=== PATIENT | female | born 1970 | race African-American/Black ===

== ENCOUNTER 2018-07-12 05:08 | Day surgery (SDC) | payer OTHER ==
[2018-07-12] MEDS ORDERED: CEFAZOLIN 2 GM/50 ML (PMX) 50 ML IVPB (06:56)
[2018-07-12] MEDS ORDERED: HETASTARCH 6% NACL 500 ML BAG (07:00)
[2018-07-12] MEDS ORDERED: SEVOFLURANE 15 MIN (07:00)
[2018-07-12] MEDS ORDERED: SUCCINYLCHOLINE CHLORIDE 100 MG/5 ML SYG IV (07:00)
[2018-07-12] MEDS ORDERED: EPHEDrine SULFATE 50 MG/5 ML SYG (07:00)
[2018-07-12] MEDS ORDERED: MIDAZOLAM 1 MG/ML 2 ML INJ (07:01)
[2018-07-12] MEDS ORDERED: ROCURONIUM 50 MG INJ (07:01)
[2018-07-12] MEDS ORDERED: PROPOFOL 20 ML (07:01)
[2018-07-12] MEDS ORDERED: ONDANSETRON 4 MG INJ (07:27)
[2018-07-12] MEDS ORDERED: DEXAMETHASONE 4 MG/ML 5 ML INJ (07:28)
[2018-07-12] MEDS ORDERED: METOCLOPRAMIDE 10 MG INJ (07:28)
[2018-07-12] MEDS ORDERED: PHENYLephrine (100 MCG/ML) 5ML SYG (07:40)
[2018-07-12] MEDS: BUPIVACAINE 0.25% (MPF) 30 ML INJ (08:10)
[2018-07-12] MEDS: POLYMYXIN/BACITRACIN 1L IRRIG (08:10)
[2018-07-12] MEDS ORDERED: SUGAMMADEX SODIUM 200 MG/2 ML VIAL IV (08:33)
[2018-07-12] MEDS ORDERED: HYDROmorphONE 1 MG/ML SYG (09:04)
[2018-07-12] MEDS ORDERED: HYDROmorphONE 1 MG/5 ML IV SYRINGE IV ×2 (09:05→09:30)
[2018-07-12] MEDS: HYDROmorphONE 1 MG/5 ML IV SYRINGE IV ×2 (09:11→09:16)
[2018-07-12] MEDS: FENTAnyl 50 MCG/ML VIAL IV ×2 (09:17→09:28)
[2018-07-12] MEDS: MEPERIDINE 25 MG INJ IV (09:17)
[2018-07-12] MEDS: ONDANSETRON 4 MG INJ IV (09:17)
[2018-07-12] MEDS: DIPHENHYDRAMINE 50 MG INJ IV (09:28)
[2018-07-12] MEDS ORDERED: EPHEDrine SULFATE 50 MG/5 ML SYG IV (09:30)
[2018-07-12] MEDS ORDERED: METOCLOPRAMIDE 10 MG INJ IV (09:30)
[2018-07-12] MEDS ORDERED: FENTAnyl 50 MCG/ML VIAL IV ×2 (09:30)
[2018-07-12] MEDS ORDERED: OXYCODONE/ACETAMINOPHEN (5/325) TAB PO (09:30)
[2018-07-12] MEDS ORDERED: hydrALAzine 20 MG INJ IV (09:30)
[2018-07-12] MEDS ORDERED: LABETALOL HCL 20MG INJ IV (09:30)
[2018-07-12] MEDS ORDERED: ONDANSETRON 4 MG INJ IV (09:30)
[2018-07-12] MEDS: OXYCODONE/ACETAMINOPHEN (5/325) TAB PO ×3 (12:13→21:34)
[2018-07-12] MEDS: DOCUSATE SODIUM 100 MG CAP PO (21:34)
[2018-07-13] MEDS: OXYCODONE/ACETAMINOPHEN (5/325) TAB PO ×3 (01:39→10:46)
[2018-07-13] MEDS ORDERED: BETHANECHOL 25 MG TAB PO (08:00)
[2018-07-13] MEDS: DOCUSATE SODIUM 100 MG CAP PO (08:57)
[2018-07-13 10:30] LABS: ADD UMIC NO; UR ASCORBIC ACID NEGATIVE (NEGATIVE); UR BILIRUBIN (Dip) NEGATIVE (NEGATIVE); UR BLOOD (Dip) NEGATIVE (NEGATIVE); UR CLARITY CLEAR (CLEAR); UR COLOR STRAW (YELLOW); UR GLUCOSE (Dip) NEGATIVE (NEGATIVE); UR KETONES (Dip) NEGATIVE (NEGATIVE); UR LEUKOCYTE ESTERASE (Dip) NEGATIVE Leu/ul (NEGATIVE); UR NITRITE (Dip) NEGATIVE (NEGATIVE); UR SPECIFIC GRAVITY (Dip) 1.005 (1.003-1.030); UR TOTAL PROTEIN (Dip) NEGATIVE (NEGATIVE); UR UROBILINOGEN (Dip) NEGATIVE (NEGATIVE)
== END 2018-07-13 12:00 | disposition home or self-care (01) ==
LOC: REC 05:08 → MS1 16:38 → SDS 05:08 → MS1 16:38 → SDS 07-13 12:00
DX: M48.061 Spinal stenosis, lumbar region without neurogenic claudication (principal)
CPT/HCPCS: 63047; 72020; 81003; 86850; 86870; 86900; 86901; 86902; 86920; 88304; 88311; 97116; 97161; 97530